=== PATIENT | male | born 1970 ===

== ENCOUNTER 2024-09-07 10:45 | Inpatient (IN) | payer OTHER ==
[~2024-09-07] VITALS: Ht 165.1 cm; Wt 68.9 kg
[2024-09-07 15:01] LABS: RH POSITIVE
[2024-09-12] MEDS ORDERED: CEFAZOLIN SODIUM 1,000 MG in 0.9 % SODIUM CHLORIDE 50 ML IV ONE (14:00)
[2024-09-12] MEDS ORDERED: BUPIVACAINE HCL 30 ML VIAL IJ ONE (14:00)
[2024-09-12] MEDS ORDERED: SURGIFLO APPLICATOR 1 EACH APPL TOP ONE (14:00)
[2024-09-12] MEDS ORDERED: HEMOSTATIC MATRIX 1 KIT KIT TOP ONE (14:00)
[2024-09-12] MEDS ORDERED: ENOXAPARIN SODIUM 40 MG/0.4 ML SYRINGE SUBCUTANEO ONE (14:00)
[2024-09-12] MEDS ORDERED: OxyCODONE HCL/APAP UD (PERCOCET) PO PRN (16:30)
[2024-09-12] MEDS ORDERED: RINGERS SOLUTION,LACTATED 1,000 ML IV SCH (16:30)
[2024-09-12] MEDS ORDERED: ONDANSETRON HCL 2 MG/ML VIAL IV PRN (16:30)
[2024-09-12] MEDS ORDERED: KETOROLAC TROMETHAMINE 30 MG VIAL IV SCH (17:00)
[2024-09-12] MEDS ORDERED: POLYETHYLENE GLYCOL 3350 17 GM BLIST.PACK PO SCH (17:00)
[2024-09-12] MEDS ORDERED: GABAPENTIN 300 MG CAPSULE PO SCH (17:00)
[2024-09-12] MEDS ORDERED: KETOROLAC TROMETHAMINE 30 MG VIAL IV ONE (17:55)
[2024-09-12 18:00] VITALS: BP 155/86; O2SAT 97
[2024-09-12] MEDS ORDERED: CEFAZOLIN SODIUM 1,000 MG VIAL IV SCH (18:00)
[2024-09-12] MEDS ORDERED: FAMOTIDINE/PF 20 MG/2 ML VIAL IV SCH (21:00)
[2024-09-13] VITALS: BP 118/70; O2SAT 96
[2024-09-13 07:25] LABS: HEMATOCRIT 38.7 % (39.0-48.0); HEMOGLOBIN 13.2 g/dL (13-16.00); MEAN CELL VOLUME 91.1 fL (80.0-100.00); PLATELET COUNT 302 K/uL (150-450); RED BLOOD COUNT 4.24 M/uL (4.00-6.00); RED CELL DISTRIBUTION WIDTH 13.5 % (11.5-14.5)
[2024-09-13 07:30] LABS: ALBUMIN 3.2 gm/dL (3.4-5.0); CALCIUM 8.6 mg/dL (8.5-10.1); CREATININE SERUM 0.87 mg/dL (0.70-1.30); GFR 91.1; PHOSPHOROUS 3.6 mg/dL (2.5-4.9); POTASSIUM 4.34 mEq/L (3.5-5.1)
[2024-09-13] MEDS ORDERED: ENOXAPARIN SODIUM 40 MG/0.4 ML SYRINGE SUBCUTANEO SCH (09:00)
[2024-09-13 09:05] VITALS: BP 145/79; O2SAT 99
== END 2024-09-13 09:43 | disposition home or self-care (01) | DRG 708 ==
LOC: O/R 09-12 05:23 → SURH 09-12 10:45 → SURG 09-12 17:40
PROVIDERS: ADMIT Urology; ATTEND Urology
PROC: 8E0W4CZ Robotic Assisted Procedure of Trunk Region, Percutaneous Endoscopic Approach (ICD-10-PCS; 2024-09-12)
PROC: 0VT04ZZ Resection of Prostate, Percutaneous Endoscopic Approach (ICD-10-PCS; principal; 2024-09-12 13:30)
DX: C61 Malignant neoplasm of prostate (principal); Z20.822 Contact with and (suspected) exposure to COVID-19
CPT/HCPCS: 55866; S2900